=== PATIENT | female | born 1960 | race American Indian/Alaskan Native ===

== ENCOUNTER 2024-07-19 13:36 | Emergency (ER) | payer OTHER ==
[~2024-07-19] VITALS: Ht 157.5 cm; Wt 149.7 kg
[~2024-07-19 13:36] MED LIST: ALLO100 PO; CELE200 PO; CLON.5 PO; ESCI20; ESCI20 PO; ESOM20; FAMO20 PO; FLUSAL2505 INH; FLUT.05NI; FURO40 PO; HYDACE5; HYDACE5 PO; HYDACE7.5 PO; LORA10 PO; LORATADINE 10 MG; METO10; METO10 PO; METR70GEL VAG; METROGEL TOP; MONT10T PO; MUPI2TC; NAPR250 PO; NORT25 PO; OMEP40CA12 PO; ORACON PO; OXCA150 PO; PANT40 PO; POTCHL20ER PO; RANI150; RXHYDACE PO; SPIR25 PO; TELM40/12. PO; TELM80/12.5 PO; TRAZ100 PO
[2024-07-19] MEDS ORDERED: Ondansetron HCl 2 MG / ML 2ML Vial IV ONE ×2 (13:45→22:20)
[2024-07-19 14:33] LABS: BASOPHILS ABSOLUTE AUTO 0.01 K/mm3 (0.00-0.23); BASOPHILS PERCENT AUTO 0 % (0-2); EOSINOPHILS PERCENT AUTO 0 % (0-6); Hematocrit 46.8 % (33.0-51.0); Hemoglobin 16.3 g/dL (11.5-16.0); IMMATURE GRAN ABSOLUTE AUTO 0.08 K/mm3 (0.00-0.10); IMMATURE GRAN PERCENT AUTO 1 % (0-1); LYMPHOCYTES ABSOLUTE AUTO 1.27 K/mm3 (0.84-5.20); LYMPHOCYTES PERCENT AUTO 10 % (21-46); MONOCYTES ABSOLUTE AUTO 0.65 K/mm3 (0.16-1.47); MONOCYTES PERCENT AUTO 5 % (4-13); Mean Corpuscular HGB 31.5 pg (26.0-34.0); Mean Corpuscular HGB Conc 34.8 g/dL (31.5-36.5); Mean Corpuscular Volume 90 fL (80-100); Mean Platelet Volume 10.1 fL (9.1-12.4); NEUTROPHILS ABSOLUTE AUTO 11.19 K/mm3 (1.96-9.15); NEUTROPHILS PERCENT AUTO 85 % (41-73); Platelet Count 316 K/mm3 (150-400); RDW Coefficient Variation 12.4 % (11.7-14.2); RDW Standard Deviation 40.8 fL (35.1-46.3); Red Blood Cell Count 5.18 M/mm3 (3.80-5.20)
[2024-07-19 14:47] LABS: Albumin/Globulin Ratio 1.1 (0.8-1.8); Bilirubin, Total 0.7 mg/dL (0.1-1.0); Bun/Creatinine Ratio 30.7 (12.0-20.0); Calcium, Blood 10.3 mg/dL (8.5-10.1); Creatinine, Blood 0.75 mg/dL (0.40-1.00); Globulin, Blood 3.7 g/dL (2.2-4.0); Potassium, Blood 3.4 mmol/L (3.5-5.5); Total Protein, Blood 7.7 g/dL (6.4-8.2)
[2024-07-19 21:44] LABS: Influenza A, PCR NEGATIVE (NEGATIVE); Influenza B, PCR NEGATIVE (NEGATIVE); Resp Syncytial Virus, PCR NEGATIVE (NEGATIVE); SARS-Cov-2 (COVID-19) PCR, MMC NEGATIVE (NEGATIVE)
[2024-07-19] MEDS ORDERED: Lactated Ringer's 1,000 ML IV ONE (22:25)
[2024-07-20 01:51] VITALS: BP 134/78
[2024-07-20] MEDS ORDERED: ONDA4ODT MM (01:51)
[2024-07-20 02:17] LABS: Source, Urine Clean Catch
[2024-07-20 02:45] LABS: Bilirubin, Urine Neg (Neg); Blood, Urine Neg (Neg); Glucose Qualitative, Urine Neg (Neg); Ketones, Urine Neg (Neg); Leukocyte Esterase, Urine Neg (Neg); Nitrite, Urine Neg (Neg); Protein, Urine 2+ (Neg); Urobilinogen, Urine NORM (Normal)
[2024-07-20 03:02] LABS: Appearance, Urine Clear (Clear); Color, Urine Yellow (P-Yellow)
[2024-07-20 03:03] LABS: Bacteria Few /hpf; Red Blood Cells, Urine 0-2 /hpf (0-2); Squamous Epithelial Cells Mod /hpf (Few); White Blood Cells, Urine 0-2 /hpf (0-5)
== END 2024-07-20 03:38 | disposition home or self-care (01) ==
LOC: ER 13:36
PROVIDERS: Physician Assistant; Student in an Organized Health Care Education/Training Program
DX: R10.84 Generalized abdominal pain (principal); R11.2 Nausea with vomiting, unspecified; E78.5 Hyperlipidemia, unspecified; I10 Essential (primary) hypertension; Z95.1 Presence of aortocoronary bypass graft; Z79.899 Other long term (current) drug therapy
CPT/HCPCS: 0241U; 74177; 80053; 81001; 83690; 85025; 96374-59; 96376; 99284-25; J2405; J7120; Q9967